=== PATIENT | male | born 1950 | race Caucasian/White ===

== ENCOUNTER 2019-08-09 15:14 | Outpatient (CLI) | payer BC ==
--- NOTE | 2019-08-09 16:50 | RAD ---
RIGHT FOOT: 08/09/19 Three views. HISTORY: Foot pain. Tarsals appear intact. Mild degenerative changes of the tarsometatarsal joints. Mild degenerative changes at the first MTP joint. Normal DJD at the second MTP joint. No fracture or acute abnormality. IMPRESSION: There are mild degenerative changes as described. POS: [facility]
== END 2019-08-09 15:15 | disposition home or self-care (01) ==
LOC: NAV RAD 15:14
PROVIDERS: ATTEND Family Medicine
DX: M79.671 Pain in right foot (principal); M19.071 Primary osteoarthritis, right ankle and foot